=== PATIENT | male | born 1970 | race African-American/Black ===

== ENCOUNTER 2016-08-20 09:04 | Inpatient (IN) | payer OTHER ==
[2016-08-20 09:19] VITALS: BMI 22.6
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
[2016-08-20] MEDS ORDERED: ACETAMINOPHEN 325 MG TABLET (FP) PO PRN (14:07)
[2016-08-20] MEDS ORDERED: MAGNESIUM CITRATE 300 ML BOTTLE PO PRN (14:07)
[2016-08-20] MEDS ORDERED: diphenhydrAMINE HCL 50 MG CAPSULE PO PRN (14:07)
[2016-08-20] MEDS ORDERED: P-EPHED 60MG/TRIPROLIDI 2.5MG TABLET PO PRN (14:07)
[2016-08-20] MEDS ORDERED: guaiFENesin/D-METHORPHAN HB 10 ML UNIT-DOSE CUPS PO PRN (14:07)
[2016-08-20] MEDS ORDERED: IBUPROFEN 400 MG TABLET (FP) PO PRN (14:07)
[2016-08-20] MEDS ORDERED: MAG HYDROX/AL HYDROX/SIMETH 30 ML UNIT-DOSE CUP PO PRN (14:07)
[2016-08-20] MEDS ORDERED: NICOTINE POLACRILEX 2 MG GUM BUC PRN (14:07)
[2016-08-20] MEDS ORDERED: MAGNESIUM HYDROX 2400MG/30ML ORAL SUSPENSION 30 ML CUP PO PRN (14:07)
[2016-08-20] MEDS ORDERED: LOPERAMIDE HCL 2 MG CAPSULE PO PRN (14:07)
[2016-08-20] MEDS ORDERED: GABAPENTIN 400 MG CAPSULE (FP) PO PRN (14:09)
[2016-08-20] MEDS: NICOTINE 14 MG/24 HOURS TOPICAL PATCH TD SCH (15:27)
[2016-08-20 16:47] LABS: MCH 28.3 pg (25.7-33.7); MEAN CELL VOLUME 83.2 fl (80-96); PLATELET COUNT 202 K/MM3 (134-434); WHITE BLOOD COUNT 7.4 K/mm3 (4.0-10.0)
[2016-08-20 16:59] LABS: ANION GAP 8 (8-16); CALCIUM 8.9 mg/dL (8.5-10.1); CO2 26 mmol/L (21-32); CREATININE 1.1 mg/dL (0.7-1.3); GLUCOSE,RANDOM 75 mg/dL (74-106); SGPT/ALT 31 U/L (12-78)
[2016-08-20 17:04] LABS: ALK PHOS 64 U/L (45-117); BILIRUBIN,TOTAL 0.4 mg/dL (0.2-1.0); SGOT/AST 38 U/L (15-37); TOT PROT 6.9 g/dl (6.4-8.2)
[2016-08-20] MEDS: THIAMINE HCL 100 MG TABLET (FP) PO SCH (21:10)
[2016-08-20] MEDS: hydrOXYzine PAMOATE 50 MG CAPSULE (FP) PO SCH (21:10)
[2016-08-20] MEDS: QUEtiapine FUMARATE 400 MG TABLET PO SCH (21:10)
[2016-08-20 23:13] LABS: URINE APPEARANCE CLEAR; URINE BILIRUBIN NEGATIVE (NEGATIVE); URINE BLOOD NEGATIVE (NEGATIVE); URINE COLOR YELLOW; URINE GLUCOSE (UA) NEGATIVE (NEGATIVE); URINE KETONE NEGATIVE (NEGATIVE); URINE LEUK ESTERASE NEGATIVE (NEGATIVE); URINE NITRITE NEGATIVE (NEGATIVE); URINE PROTEIN NEGATIVE (NEGATIVE); URINE UROBILINOGEN NEGATIVE E.U./dl (0.2-1.0)
[2016-08-21] MEDS: NICOTINE 14 MG/24 HOURS TOPICAL PATCH TD SCH (09:39)
[2016-08-21] MEDS: PRENATAL VITAMINS W/ FOLIC ACID TABLET (FP) PO SCH (09:39)
[2016-08-21] MEDS: PATIENT'S OWN MEDICATION (NON-FORMULARY) (Meloxicam [Mobic] 15 MG) PO SCH (09:39)
[2016-08-21] MEDS: FLUoxetine HCL 20 MG CAPSULE (FP) PO SCH (09:39)
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
[2016-08-21] MEDS: THIAMINE HCL 100 MG TABLET (FP) PO SCH (21:09)
[2016-08-21] MEDS: hydrOXYzine PAMOATE 50 MG CAPSULE (FP) PO SCH (21:09)
[2016-08-21] MEDS: QUEtiapine FUMARATE 400 MG TABLET PO SCH (21:09)
[2016-08-21] MEDS: GABAPENTIN 800 MG PO PRN (21:11)
[2016-08-22] MEDS: FLUoxetine HCL 20 MG CAPSULE (FP) PO SCH (09:37)
[2016-08-22] MEDS: PRENATAL VITAMINS W/ FOLIC ACID TABLET (FP) PO SCH (09:37)
[2016-08-22] MEDS: NICOTINE 14 MG/24 HOURS TOPICAL PATCH TD SCH (09:37)
[2016-08-22] MEDS: PATIENT'S OWN MEDICATION (NON-FORMULARY) (Meloxicam [Mobic] 15 MG) PO SCH (09:37)
[2016-08-22] MEDS: GABAPENTIN 800 MG PO PRN (09:39)
[2016-08-22] MEDS: QUEtiapine FUMARATE 400 MG TABLET PO SCH (21:22)
[2016-08-22] MEDS: hydrOXYzine PAMOATE 50 MG CAPSULE (FP) PO SCH (21:22)
[2016-08-22] MEDS: THIAMINE HCL 100 MG TABLET (FP) PO SCH (21:22)
[2016-08-23] MEDS: PRENATAL VITAMINS W/ FOLIC ACID TABLET (FP) PO SCH (09:43)
[2016-08-23] MEDS: FLUoxetine HCL 20 MG CAPSULE (FP) PO SCH (09:43)
[2016-08-23] MEDS: NICOTINE 14 MG/24 HOURS TOPICAL PATCH TD SCH (09:44)
[2016-08-23] MEDS: PATIENT'S OWN MEDICATION (NON-FORMULARY) (Meloxicam [Mobic] 15 MG) PO SCH (09:44)
[2016-08-23] MEDS: THIAMINE HCL 100 MG TABLET (FP) PO SCH (21:06)
[2016-08-23] MEDS: QUEtiapine FUMARATE 400 MG TABLET PO SCH (21:06)
[2016-08-23] MEDS: hydrOXYzine PAMOATE 50 MG CAPSULE (FP) PO SCH (21:06)
[2016-08-23] MEDS: GABAPENTIN 800 MG PO PRN (21:06)
[2016-08-23] MEDS: MENTHOL/PHENOL 1 EACH UD MM PRN (21:07)
[2016-08-24] MEDS: PATIENT'S OWN MEDICATION (NON-FORMULARY) (Meloxicam [Mobic] 15 MG) PO SCH (09:55)
[2016-08-24] MEDS: PRENATAL VITAMINS W/ FOLIC ACID TABLET (FP) PO SCH (09:55)
[2016-08-24] MEDS: FLUoxetine HCL 20 MG CAPSULE (FP) PO SCH (09:56)
[2016-08-24] MEDS: NICOTINE 14 MG/24 HOURS TOPICAL PATCH TD SCH (09:56)
[2016-08-24] MEDS: GABAPENTIN 800 MG PO PRN ×2 (09:57→21:14)
[2016-08-24] MEDS: hydrOXYzine PAMOATE 50 MG CAPSULE (FP) PO SCH (21:11)
[2016-08-24] MEDS: QUEtiapine FUMARATE 400 MG TABLET PO SCH (21:11)
[2016-08-24] MEDS: THIAMINE HCL 100 MG TABLET (FP) PO SCH (21:12)
[2016-08-25] MEDS: GABAPENTIN 800 MG PO PRN ×2 (06:15→21:06)
[2016-08-25] MEDS: FLUoxetine HCL 20 MG CAPSULE (FP) PO SCH (10:03)
[2016-08-25] MEDS: PRENATAL VITAMINS W/ FOLIC ACID TABLET (FP) PO SCH (10:03)
[2016-08-25] MEDS: PATIENT'S OWN MEDICATION (NON-FORMULARY) (Meloxicam [Mobic] 15 MG) PO SCH (10:03)
[2016-08-25] MEDS: NICOTINE 14 MG/24 HOURS TOPICAL PATCH TD SCH (10:05)
[2016-08-25] MEDS: PATIENT'S OWN MEDICATION (NON-FORMULARY) (Tizanidine Hcl [Tizanidine Hcl] 4 MG) PO PRN (21:05)
[2016-08-25] MEDS: QUEtiapine FUMARATE 400 MG TABLET PO SCH (21:05)
[2016-08-25] MEDS: hydrOXYzine PAMOATE 50 MG CAPSULE (FP) PO SCH (21:05)
[2016-08-25] MEDS: THIAMINE HCL 100 MG TABLET (FP) PO SCH (21:35)
[2016-08-26] MEDS: PATIENT'S OWN MEDICATION (NON-FORMULARY) (Meloxicam [Mobic] 15 MG) PO SCH (10:05)
[2016-08-26] MEDS: PRENATAL VITAMINS W/ FOLIC ACID TABLET (FP) PO SCH (10:05)
[2016-08-26] MEDS: FLUoxetine HCL 20 MG CAPSULE (FP) PO SCH (10:05)
[2016-08-26] MEDS: NICOTINE 14 MG/24 HOURS TOPICAL PATCH TD SCH (10:05)
[2016-08-26] MEDS: GABAPENTIN 800 MG PO PRN ×2 (10:05→21:09)
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
[2016-08-26] MEDS ORDERED: QUEtiapine FUMARATE 100 MG TABLET (FP) PO ONE (11:23)
[2016-08-26] MEDS: THIAMINE HCL 100 MG TABLET (FP) PO SCH (21:07)
[2016-08-26] MEDS: QUEtiapine FUMARATE 400 MG TABLET PO SCH (21:07)
[2016-08-26] MEDS: hydrOXYzine PAMOATE 50 MG CAPSULE (FP) PO SCH (21:07)
[2016-08-26] MEDS: PATIENT'S OWN MEDICATION (NON-FORMULARY) (Tizanidine Hcl [Tizanidine Hcl] 4 MG) PO PRN (21:10)
[2016-08-26] MEDS: MENTHOL/PHENOL 1 EACH UD MM PRN (23:41)
[2016-08-27] MEDS: QUEtiapine FUMARATE 100 MG TABLET (FP) PO SCH (09:58)
[2016-08-27] MEDS: PRENATAL VITAMINS W/ FOLIC ACID TABLET (FP) PO SCH (09:59)
[2016-08-27] MEDS: FLUoxetine HCL 20 MG CAPSULE (FP) PO SCH (09:59)
[2016-08-27] MEDS ORDERED: PT OWN MED DRAWER 7, Y5N ONE (09:59)
[2016-08-27] MEDS: NICOTINE 14 MG/24 HOURS TOPICAL PATCH TD SCH (09:59)
[2016-08-27] MEDS: PATIENT'S OWN MEDICATION (NON-FORMULARY) (Meloxicam [Mobic] 15 MG) PO SCH (10:00)
[2016-08-27] MEDS: GABAPENTIN 800 MG PO PRN ×2 (10:01→21:07)
[2016-08-27] MEDS: hydrOXYzine PAMOATE 50 MG CAPSULE (FP) PO SCH (21:06)
[2016-08-27] MEDS: THIAMINE HCL 100 MG TABLET (FP) PO SCH (21:06)
[2016-08-27] MEDS: QUEtiapine FUMARATE 400 MG TABLET PO SCH (21:06)
[2016-08-27] MEDS: PATIENT'S OWN MEDICATION (NON-FORMULARY) (Tizanidine Hcl [Tizanidine Hcl] 4 MG) PO PRN (21:07)
[2016-08-28] MEDS: QUEtiapine FUMARATE 100 MG TABLET (FP) PO SCH (10:02)
[2016-08-28] MEDS: NICOTINE 14 MG/24 HOURS TOPICAL PATCH TD SCH (10:02)
[2016-08-28] MEDS: PATIENT'S OWN MEDICATION (NON-FORMULARY) (Meloxicam [Mobic] 15 MG) PO SCH (10:02)
[2016-08-28] MEDS: FLUoxetine HCL 20 MG CAPSULE (FP) PO SCH (10:02)
[2016-08-28] MEDS: PRENATAL VITAMINS W/ FOLIC ACID TABLET (FP) PO SCH (10:02)
[2016-08-28] MEDS: GABAPENTIN 800 MG PO PRN (10:04)
[2016-08-28] MEDS: THIAMINE HCL 100 MG TABLET (FP) PO SCH (21:09)
[2016-08-28] MEDS: hydrOXYzine PAMOATE 50 MG CAPSULE (FP) PO SCH (21:09)
[2016-08-28] MEDS: QUEtiapine FUMARATE 400 MG TABLET PO SCH (21:10)
[2016-08-29] MEDS: FLUoxetine HCL 20 MG CAPSULE (FP) PO SCH (09:37)
[2016-08-29] MEDS: QUEtiapine FUMARATE 100 MG TABLET (FP) PO SCH (09:37)
[2016-08-29] MEDS: PRENATAL VITAMINS W/ FOLIC ACID TABLET (FP) PO SCH (09:37)
[2016-08-29] MEDS: PATIENT'S OWN MEDICATION (NON-FORMULARY) (Meloxicam [Mobic] 15 MG) PO SCH (09:38)
[2016-08-29] MEDS: GABAPENTIN 800 MG PO PRN ×2 (09:38→21:12)
[2016-08-29] MEDS: NICOTINE 14 MG/24 HOURS TOPICAL PATCH TD SCH (09:39)
[2016-08-29] MEDS: QUEtiapine FUMARATE 400 MG TABLET PO SCH (21:09)
[2016-08-29] MEDS: hydrOXYzine PAMOATE 50 MG CAPSULE (FP) PO SCH (21:09)
[2016-08-29] MEDS: THIAMINE HCL 100 MG TABLET (FP) PO SCH (21:09)
[2016-08-29] MEDS: PATIENT'S OWN MEDICATION (NON-FORMULARY) (Tizanidine Hcl [Tizanidine Hcl] 4 MG) PO PRN (21:13)
[2016-08-30] MEDS: FLUoxetine HCL 20 MG CAPSULE (FP) PO SCH (09:41)
[2016-08-30] MEDS: QUEtiapine FUMARATE 100 MG TABLET (FP) PO SCH (09:41)
[2016-08-30] MEDS: PRENATAL VITAMINS W/ FOLIC ACID TABLET (FP) PO SCH (09:41)
[2016-08-30] MEDS: NICOTINE 14 MG/24 HOURS TOPICAL PATCH TD SCH (09:42)
[2016-08-30] MEDS: PATIENT'S OWN MEDICATION (NON-FORMULARY) (Meloxicam [Mobic] 15 MG) PO SCH (09:42)
[2016-08-30] MEDS: GABAPENTIN 800 MG PO PRN (21:03)
[2016-08-30] MEDS: hydrOXYzine PAMOATE 50 MG CAPSULE (FP) PO SCH (21:03)
[2016-08-30] MEDS: QUEtiapine FUMARATE 400 MG TABLET PO SCH (21:03)
[2016-08-30] MEDS: THIAMINE HCL 100 MG TABLET (FP) PO SCH (21:03)
[2016-08-30] MEDS: PATIENT'S OWN MEDICATION (NON-FORMULARY) (Tizanidine Hcl [Tizanidine Hcl] 4 MG) PO PRN (21:04)
[2016-08-31 05:54] VITALS: BP 135/80; PULSE 78; TEMP 98.1
[2016-08-31] MEDS ORDERED: PT OWN MED DRAWER 7, Y5N ONE ×2 (08:29→10:15)
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
[2016-08-31] MEDS: PRENATAL VITAMINS W/ FOLIC ACID TABLET (FP) PO SCH (10:14)
[2016-08-31] MEDS: FLUoxetine HCL 20 MG CAPSULE (FP) PO SCH (10:14)
[2016-08-31] MEDS: PATIENT'S OWN MEDICATION (NON-FORMULARY) (Meloxicam [Mobic] 15 MG) PO SCH (10:14)
[2016-08-31] MEDS: QUEtiapine FUMARATE 100 MG TABLET (FP) PO SCH (10:14)
[2016-08-31] MEDS: NICOTINE 14 MG/24 HOURS TOPICAL PATCH TD SCH (10:14)
== END 2016-08-31 11:10 | disposition home or self-care (01) | DRG 772 ==
LOC: YASAS 09:04 → Y5N 10:40
PROVIDERS: ADMIT Psychiatry & Neurology Psychiatry; ATTEND Psychiatry & Neurology Psychiatry
PROC: HZ42ZZZ Group Counseling for Substance Abuse Treatment, Cognitive-Behavioral (ICD-10-PCS; principal; 2016-08-20)
DX: F10.20 Alcohol dependence, uncomplicated (principal); F12.20 Cannabis dependence, uncomplicated; F31.9 Bipolar disorder, unspecified; M19.042 Primary osteoarthritis, left hand; M19.041 Primary osteoarthritis, right hand; M41.9 Scoliosis, unspecified; G58.9 Mononeuropathy, unspecified; Z72.0 Tobacco use; Z91.5 Personal history of self-harm
CPT/HCPCS: 36415; 80053; 81003; 85027; 85660; 86593